=== PATIENT | female | born 1990 | race Caucasian/White ===

== ENCOUNTER 2017-03-07 19:45 | Emergency (ER) | payer MEDICAID ==
[2017-03-07 20:00] VITALS: BP 108/76
--- NOTE | 2017-03-07 20:39 | XRAY Preliminary Report ---
Exam: XR Knee 3 View RT IMPRESSION: No evidence for acute fracture. There appears to be a very small knee joint effusion. [facility] SITE ID: [id number]
--- NOTE | 2017-03-07 20:42 | XRAY Report ---
EXAM: RIGHT KNEE RADIOGRAPHY EXAM DATE: 03/07/2017 08:28 PM. CLINICAL HISTORY: Injury from fall. COMPARISON: None. TECHNIQUE: 3 views. FINDINGS: Bones: Normal. No fractures or bone lesions. Joints: No subluxation. There appears to be a very small knee joint effusion. Soft Tissues: Normal. No soft tissue swelling. IMPRESSION: No evidence for acute fracture. There appears to be a very small knee joint effusion. [facility] Referring Provider Line: [phone] SITE ID: [id number]
[2017-03-07] MEDS ORDERED: IBUPROFEN 800 MG TABLET PO STA (21:00)
--- NOTE | 2017-03-07 21:03 | ED Physician Documentation ---
PD HPI LOWER EXT INJURY - Stated complaint Stated Complaint: RIGHT KNEE PAIN - Chief complaint Chief Complaint: Trauma Ext - History obtained from History obtained from: Patient, Family - History of Present Illness PD HPI LOW EXT INJURY LOCATION: Other (Very early yesterday morning she stepped on a rock and fell directly on her right patella. 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 - Present Medications Home Medications: Ambulatory Orders Medication Instructions Recorded Confirmed No Known Home Medications [No 03/07/17 03/07/17 Known Home Medications] - Allergies Allergies/Adverse Reactions: Allergies Allergy/AdvReac Type Severity Reaction Status Date / Time latex Allergy Intermediate Rash Verified 03/07/17 19:57 penicillin G Allergy Intermediate Rash Verified 03/07/17 19:57 amoxicillin [Amoxicillin] Allergy Unknown Unknown Verified 03/07/17 19:57 - Social History Does the pt smoke?: Yes Smoking Status: Current every day smoker Does the pt drink ETOH?: No Does the pt have substance abuse?: No - Immunizations Immunizations are current?: Yes - POLST Patient has POLST: No PD ED PE NORMAL - Vitals Vital signs reviewed: Yes - General General: Alert and oriented X 3, No acute distress - Extremities Extremities: Other (Left knee has a tiny effusion, there is some tenderness of both the medial and lateral joint line and the popliteal fossa without patellar tenderness. No ligamentous laxity, intermediately positive grind testing.) - Neuro Neuro: Alert and oriented X 3 - Psych Psych: Normal mood, Normal affect Results - Vitals Vitals: Vital Signs - 24 hr 03/07/17 19:57 Temperature 36.0 C L Heart Rate 77 Respiratory 15 Rate Blood Pressure 108/76 O2 Saturation 98 Oxygen O2 Source Room air - Rads (name of study) R knee Radiology: EMP read contemporaneously (Small effusion without fracture) Departure - Departure Disposition: 01 Home, Self Care Clinical Impression: Right knee sprain Qualifiers: Encounter type: initial encounter Involved ligament of knee: unspecified ligament Qualified Code(s): S83.91XA - Sprain of unspecified site of right knee , initial encounter Condition: Good Record reviewed to determine appropriate education?: Yes Instructions: ED Meniscal Injury Knee Poss Comments: Ibuprofen as needed for pain, follow-up with your physician if not improving within the week. Forms: Activity restrictions
[2017-03-07] MEDS ORDERED: IBUPROFEN 800 MG TABLET PO ONE (21:28)
== END 2017-03-07 21:36 | disposition home or self-care (01) ==
LOC: ED 19:45
DX: S83.91XA Sprain of unspecified site of right knee, initial encounter (principal); W18.30XA Fall on same level, unspecified, initial encounter; Y93.01 Activity, walking, marching and hiking
CPT/HCPCS: 73562; 99282; 99283; A9270

== ENCOUNTER 2017-04-09 11:33 | Outpatient (CLI) | payer MEDICAID ==
[2017-04-09 13:12] LABS: THYROID STIMULATING HORMONE 2.32 uIU/mL (0.34-5.60)
== END 2017-04-09 11:34 | disposition home or self-care (01) ==
LOC: LAB 11:33
PROVIDERS: ATTEND Obstetrics & Gynecology
DX: Z13.29 Encounter for screening for other suspected endocrine disorder (principal)
CPT/HCPCS: 36415; 84439; 84443

== ENCOUNTER 2017-11-01 20:48 | Emergency (ER) | payer MEDICAID ==
[2017-11-01] MEDS ORDERED: oxyCODONE/ACET 5/325 Prepack 4 PO STA (21:15)
[2017-11-01] MEDS ORDERED: CLINDAMYCIN 150 MG CAPSULE PO STA (21:15)
--- NOTE | 2017-11-01 21:17 | ED Physician Documentation ---
PD HPI HEENT - Stated complaint Stated Complaint: JAW PX - Chief complaint Chief Complaint: Heent - History obtained from History obtained from: Patient - History of Present Illness Timing - onset: Other (She has had increasing pain with full lump on the soft palate related to a right maxillary premolar with mild facial swelling but no fevers. No possibility of . She has an appointment with [facility] coming up but it has been a long time since she went to the dentist.) Review of Systems Constitutional: denies: Fever, Chills Ears: denies: Loss of hearing, Ear pain Throat: reports: Dental pain / toothache. 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 - Present Medications Home Medications: Ambulatory Orders Medication Instructions Recorded Confirmed Clindamycin [Cleocin] 300 mg PO Q6H 10 Days capsule 11/01/17 Oxycodone HCl/Acetaminophen 1 - 2 tab PO Q4H PRN #15 tablet 11/01/17 [Percocet 5-325 mg Tablet] - Allergies Allergies/Adverse Reactions: Allergies Allergy/AdvReac Type Severity Reaction Status Date / Time latex Allergy Intermediate Rash Verified 03/07/17 19:57 penicillin G Allergy Intermediate Rash Verified 03/07/17 19:57 amoxicillin [Amoxicillin] Allergy Unknown Unknown Verified 03/07/17 19:57 - Social History Does the pt smoke?: Yes Smoking Status: Current every day smoker Does the pt drink ETOH?: No Does the pt have substance abuse?: No - Immunizations Immunizations are current?: Yes - POLST Patient has POLST: No PD ED PE NORMAL - Vitals Vital signs reviewed: Yes - General General: Alert and oriented X 3, No acute distress - HEENT HEENT: Other (On the right side of this hard palate there is a spontaneously draining abscess that was completely expressed during examination related to an infected right maxillary premolar. There is no sublingual edema, trismus, she maybe has very mild facial swelling reactive to this.) - Neck Neck: Supple, no meningeal sign, No bony TTP - Neuro Neuro: Alert and oriented X 3, Normal speech Results - Vitals Vitals: Vital Signs - 24 hr 11/01/17 20:51 Temperature 36.5 C Heart Rate 83 Respiratory 15 Rate Blood Pressure 135/81 H O2 Saturation 98 Oxygen O2 Source Room air Departure - Departure Disposition: 01 Home, Self Care Clinical Impression: Dental abscess Condition: Good Record reviewed to determine appropriate education?: Yes Instructions: ED Tooth Pain Prescriptions: Clindamycin [Cleocin] 300 mg PO Q6H 10 Days capsule Oxycodone HCl/Acetaminophen [Percocet 5-325 mg Tablet] 1 - 2 tab PO Q4H PRN #15 tablet PRN Reason: Pain Comments: It is very important that you follow-up with a dentist. When it comes to dental problems like yours, the emergency department can only offer a short- term solution to your long-term problem. A couple of low cost options for dental care include: [facility] in [place], calls [phone] for an appointment Or [facility] in [place], call [phone] for an appointment. Your blood pressure was elevated today on check into the emergency department. This does not mean that you have hypertension, it is a common phenomenon to come to the emergency department and have elevated blood pressure. I recommend that you see your primary care physician within the week to have it rechecked when you are feeling better. Do not drink or drive while taking narcotic pain medication. Note that many narcotic pain relievers also contain Tylenol/acetaminophen. Please ensure that your total dose of acetaminophen from all sources does not exceed 3 g (3000 mg) per day. You may get constipated while on this medication. Take a stool softener such as Colace twice a day while you are on it. Also add an [id number] laxative such as senna or MiraLAX on any day that you do not have a bowel movement. If you received a narcotic pain medication or sedative while in the emergency department, do not drive for the next 24 hours.
[2017-11-01 21:37] VITALS: BP 112/79
== END 2017-11-01 21:35 | disposition home or self-care (01) ==
LOC: ED 20:48
DX: K04.7 Periapical abscess without sinus (principal); R03.0 Elevated blood-pressure reading, without diagnosis of hypertension
CPT/HCPCS: 99283; A9270

== ENCOUNTER 2018-02-04 13:55 | Emergency (ER) | payer OTHER, MEDICAID ==
[2018-02-04] MEDS ORDERED: ACETAMINOPHEN 500 MG TABLET PO STA (17:11)
[2018-02-04] MEDS ORDERED: DEXAMETHASONE 10 MG/ML VIAL PO STA (17:11)
--- NOTE | 2018-02-04 17:14 | ED Physician Documentation ---
History of Present Illness - Stated complaint Stated Complaint: FEVER/COUGH/THROAT PX/SOA - Chief complaint Chief Complaint: Heent - History obtained from History obtained from: Patient - Additonal information Additional information: 28-year-old female presents the emergency department with complaints of 2 days of sore throat and fever, body aches, nasal congestion and cough. The patient' s symptoms improved with Tylenol or Motrin. The patient denies any trouble swallowing or inability to handle secretions. Symptoms are described as moderate. No other associated symptoms. No other sick contacts. Review of Systems Constitutional: reports: Fever, Chills, Myalgias, Fatigue Eyes: denies: Discharge Ears: denies: Ear pain Nose: reports: Congestion Throat: reports: Sore throat Respiratory: reports: Cough. 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 - Present Medications Home Medications: Ambulatory Orders Medication Instructions Recorded Confirmed Clindamycin [Cleocin] 300 mg PO Q6H 10 Days capsule 11/01/17 Oxycodone HCl/Acetaminophen 1 - 2 tab PO Q4H PRN #15 tablet 11/01/17 [Percocet 5-325 mg Tablet] - Allergies Allergies/Adverse Reactions: Allergies Allergy/AdvReac Type Severity Reaction Status Date / Time latex Allergy Intermediate Rash Verified 02/04/18 14:10 penicillin G Allergy Intermediate Rash Verified 02/04/18 14:10 amoxicillin [Amoxicillin] Allergy Unknown Unknown Verified 02/04/18 14:10 - Social History Does the pt smoke?: Yes Smoking Status: Current every day smoker Does the pt drink ETOH?: No Does the pt have substance abuse?: No - Immunizations Immunizations are current?: Yes - POLST Patient has POLST: No PD ED PE NORMAL - General General: Alert and oriented X 3, No acute distress - HEENT HEENT: Atraumatic, PERRL, EOMI, Ears normal, Other (There is mild erythema of the posterior pharynx, there is no exudate. There is no evidence of a peritonsillar abscess. The uvula is midline and nonedematous. The tongue is within normal limits. The floor the mouth is moist and soft. The patient has no trismus) - Neck Neck: Other (No stridor) - Cardiac Cardiac: RRR - Respiratory Respiratory: No respiratory distress, Clear bilaterally - Derm Derm: Normal color - Extremities Extremities: No deformity - Neuro Neuro: Alert and oriented X 3 - Psych Psych: Normal affect Results - Vitals Vitals: Vital Signs - 24 hr 02/04/18 02/04/18 14:07 17:28 Temperature 36.4 C L 36.5 C Heart Rate 88 84 Respiratory 16 18 Rate Blood Pressure 129/87 H 122/80 O2 Saturation 96 100 Oxygen O2 Source Room air - Labs Labs: Laboratory Tests 02/04/18 14:10 Group A Strep Rapid Negative PD MEDICAL DECISION MAKING - ED course ED course: The patient appears to have a viral pharyngitis, the patient appears appropriate for outpatient management. I discussed with her the findings and plan. The patient understands and agrees. I discussed warning signs and recommended returning to the emergency department immediately for worsening or any concerns. - Sepsis Event Vital Signs: Vital Signs - 24 hr 02/04/18 02/04/18 14:07 17:28 Temperature 36.4 C L 36.5 C Heart Rate 88 84 Respiratory 16 18 Rate Blood Pressure 129/87 H 122/80 O2 Saturation 96 100 Oxygen O2 Source Room air Departure - Departure Disposition: 01 Home, Self Care Clinical Impression: Viral pharyngitis, Sore throat Condition: Good Instructions: ED Pharyngitis Viral Comments: Please follow-up with primary care for reevaluation. Please return to the emergency department immediately for worsening symptoms or any concerns Discharge Date/Time: 02/04/18 17:28
[2018-02-04] MEDS ORDERED: CHERRY SYRUP 10 ML UDC PO ONE (17:20)
[2018-02-04 17:29] VITALS: BP 122/80
== END 2018-02-04 17:28 | disposition home or self-care (01) ==
LOC: ED 13:55
DX: J02.8 Acute pharyngitis due to other specified organisms (principal); B97.89 Other viral agents as the cause of diseases classified elsewhere
CPT/HCPCS: 87070; 87430; 99283; A9270

== ENCOUNTER 2018-02-24 12:58 | Outpatient (CLI) | payer MEDICAID ==
--- NOTE | 2018-02-24 15:23 | XRAY Report ---
Reason: PRODUCTIVE COUGH Procedure Date: 02/24/2018 Accession Number: [id number] / [id number] Procedure: XR - Chest 2 View X-Ray CPT Code: 40811 FULL RESULT: EXAM: CHEST RADIOGRAPHY EXAM DATE: 02/24/2018 01:14 PM. CLINICAL HISTORY: PRODUCTIVE COUGH. COMPARISON: Chest 07/13/2012. TECHNIQUE: 2 views. FINDINGS: Lungs/Pleura: No focal opacities evident. No pleural effusion. No pneumothorax. Normal volumes. Mediastinum: Heart and mediastinal contours are unremarkable. IMPRESSION: No evidence of acute thoracic process [facility]
== END 2018-02-24 12:59 | disposition home or self-care (01) ==
LOC: DI 12:58
PROVIDERS: ATTEND Physician Assistant Medical
DX: R05 Cough (principal)
CPT/HCPCS: 71046

== ENCOUNTER 2018-04-13 04:09 | Emergency (ER) | payer MEDICAID, OTHER ==
[2018-04-13 04:18] VITALS: BP 131/87
[2018-04-13] MEDS ORDERED: CLINDAMYCIN 150 MG CAPSULE PO STA ×2 (04:37→04:44)
--- NOTE | 2018-04-13 04:41 | ED Physician Documentation ---
PD HPI HEENT - Stated complaint Stated Complaint: RT EAR,JAW PAIN - Chief complaint Chief Complaint: Heent - History obtained from History obtained from: Patient, Family - History of Present Illness Timing - onset: Enter time (1700), Last night Timing - duration: Hours Timing - details: Gradual onset, Still present Location: Right ear Improves: Medication Associated symptoms: Headache. No: Fever, Congestion, Rhinorrhea, Trismus, Unable to swallow, Swollen nodes, Cough Similar symptoms before: Has not had sx before Recently seen: Not recently seen - Additional information Additional information: Previously well 28-year-old female who began to have some pain in her right jaw. She feels that this pain is into her right ear and she denies any dental tenderness or difficulty chewing on that side. She does not have any crowns or prior root canals. She has not had a cough. Review of Systems Constitutional: reports: Myalgias. denies: Fever Eyes: denies: Decreased vision Ears: reports: Ear pain Nose: reports: Congestion. 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 - Present Medications Home Medications: Ambulatory Orders Medication Instructions Recorded Confirmed Clindamycin [Cleocin] 300 mg PO Q6H 10 Days capsule 11/01/17 Oxycodone HCl/Acetaminophen 1 - 2 tab PO Q4H PRN #15 tablet 11/01/17 [Percocet 5-325 mg Tablet] Clindamycin [Cleocin] 300 mg PO Q6H 7 Days #28 capsule 04/13/18 - Allergies Allergies/Adverse Reactions: Allergies Allergy/AdvReac Type Severity Reaction Status Date / Time latex Allergy Intermediate Rash Verified 04/13/18 04:17 penicillin G Allergy Intermediate Rash Verified 04/13/18 04:17 amoxicillin [Amoxicillin] Allergy Unknown Unknown Verified 04/13/18 04:17 - Social History Does the pt smoke?: Yes Smoking Status: Current every day smoker Does the pt drink ETOH?: No Does the pt have substance abuse?: No - Immunizations Immunizations are current?: Yes - POLST Patient has POLST: No PD ED PE NORMAL - Vitals Vital signs reviewed: Yes (hypertensive ) - General General: Alert and oriented X 3, Well developed/nourished, Other (Supply Chain Assistant tone and flattened affect consistent with pain.) - HEENT HEENT: Atraumatic, PERRL, EOMI, Other (left TM is inflamed and the right is clear. There is tenderness to the buccal fold on the left both upper and lower and some fullness upper and lower without fluctuance. ) - Neck Neck: Supple, no meningeal sign, No bony TTP - Cardiac Cardiac: RRR, No murmur - Respiratory Respiratory: No respiratory distress, Clear bilaterally - Derm Derm: Normal color, Warm and dry, No rash - Extremities Extremities: No deformity, No edema - Neuro Neuro: Alert and oriented X 3, mechanical expert 2-12 intact, No motor deficit, No sensory deficit, Normal speech Eye Opening: Spontaneous Motor: Obeys Commands Verbal: Oriented GCS Score: 15 - Psych Psych: Normal mood, Normal affect Results - Vitals Vitals: Vital Signs - 24 hr 04/13/18 04:12 Temperature 36.3 C L Heart Rate 76 Respiratory 18 Rate Blood Pressure 131/87 H O2 Saturation 97 Oxygen O2 Source Room air PD MEDICAL DECISION MAKING - ED course Complexity details: considered differential, d/w patient, d/w family ED course: 28-year-old female with right ear pain has what appears to be a dental infection without tenderness to the teeth. She is administered clindamycin 150 mg orally and we will dispense some pain medication to her. Departure - Departure Disposition: 01 Home, Self Care Clinical Impression: Dental abscess Instructions: ED Tooth Pain Follow-Up: Loy Loya PA-C [Primary Care Provider] - Prescriptions: Clindamycin [Cleocin] 300 mg PO Q6H 7 Days #28 capsule Forms: Activity restrictions
[2018-04-13] MEDS ORDERED: HYDROcod/ACET 5/325 Prepack 4 PO STA (04:44)
== END 2018-04-13 05:04 | disposition home or self-care (01) ==
LOC: ED 04:09
DX: K04.7 Periapical abscess without sinus (principal); F17.200 Nicotine dependence, unspecified, uncomplicated
CPT/HCPCS: 99283; A9270